=== PATIENT | male | born 1950 | race Caucasian/White ===

== ENCOUNTER 2022-06-29 12:50 | Emergency (ER) | payer OTHER, SELFPAY ==
[2022-06-29] VITALS (16 sets, daily range): BP systolic 152–172; BP diastolic 73–90; PULSE 63–73; RESP 16; TEMP 36.4; O2SAT 95–98; BMI 30.7
[2022-06-29 13:51] LABS: Basophils Absolute Auto 0.03 K/uL (0.00-0.30); Basophils Percent Auto 0.4 % (0.0-3.0); Eosinophils Absolute Auto 0.14 K/uL (0.00-0.50); Eosinophils Percent Auto 1.8 % (0.0-7.0); Hematocrit 41.7 % (37.0-53.0); Hemoglobin* 14.7 gm/dL (13.5-17.5); Immature Granulocytes Abs Auto 0.07 K/uL (0.00-0.30); Immature Granulocytes Pct Auto 0.9 %; Lymphocytes Absolute Auto 2.12 K/uL (0.90-2.90); Lymphocytes Percent Auto 27.5 % (20-44); Mean Corpuscular HGB Conc 35 gm/dL (32-36); Mean Corpuscular Hemoglobin 33 pg (26-34); Mean Corpuscular Volume 93 fL (80-100); Monocytes Percent Auto 15.7 % (0.0-11.0); Neutrophils Absolute Auto 4.15 K/uL (1.7-7.0); Neutrophils Percent Auto 53.7 % (42.0-72.0); Platelet Count* 179 K/uL (140-440); RDW Coefficient of Variation % 12.6 % (11.5-15.5); Red Blood Count 4.51 m/uL (4.30-5.90); White Blood Count* 7.72 K/uL (4.50-11.00)
[2022-06-29 13:52] LABS: Slide Review Reflex No
[2022-06-29 13:57] LABS: Troponin, Point-of-Care* 0.02 ng/ml (0.01-0.04)
[2022-06-29 14:04] LABS: Chloride* 108 mmol/L (96-114); Potassium* 3.6 mmol/L (3.6-5.1); Sodium* 142 mmol/L (135-149)
--- NOTE | 2022-06-29 14:06 | ED_ITS ---
HPI - Syncope General Date Seen: 06/29/22 Chief Complaint: Syncope/Fainted Stated Complaint: Passes out last night Time Seen by Provider: 06/29/22 12:51 Source: patient Mode of arrival: ambulatory Limitations: no limitations History of Present Illness HPI narrative: Patient is a pleasant 71-year-old gentleman who presents here for evaluation of a syncopal episode occurred yesterday, while he was in [place]. He was at a restaurant, had 1 glass of alcohol, then felt faint, and there is a period of approximately a couple minutes, where he almost passed out, they had to lay him down, with his legs elevated and then he felt much improved. His took his pulse at 1 point and could really get a radial pulse, although he seemingly was still breathing and somewhat talking, the whole time. Till he felt tired early back to normal was about an hour and a half, the paramedics came approximately 15 minutes after this occurred, did an EKG and blood pressure and told him that everything looked okay but they do recommend that he get seen. Denies any chest pain, or any feeling that his heart was racing, there is no headaches, denies any leg swelling, any exertional dyspnea either at the timer leading up to this, and otherwise feels fine with no fevers chills or cold-like symptoms. Did not take any other medication is on no chronic medications, no previous heart history nonsmoker with no really cardiovascular risks. Ate normally that day, drank normally, does not drink alcohol on a regular basis Related Data Home Medications Medication Instructions Recorded Confirmed No Known Home Medications 06/29/22 06/29/22 Allergies Allergy/AdvReac Type Severity Reaction Status Date / Time No Known Drug Allergies Allergy Verified 06/29/22 13:02 Review of Systems Status of ROS: Reports: 10 or more systems reviewed and unremarkable except as noted in History and below [facility] Social History Smoking Status: Never smoker Do you use any of these nicotine containing products: None Second hand tobacco smoke exposure: No How often do you have a drink containing alcohol: never AUDIT-C Alcohol total score: 0 Non-prescribed substance use: denies use Exam Narrative: Exam Narrative: Patient is speaking normally, no problem with slurring words, oriented x3. Head eyes ears nose and throat exam show equal pupils, no scleral icterus, extra ocular muscles are normal, no facial droop, speech is normal, trachea normal and midline. Thyroid normal midline palpable not enlarged. Chest shows symmetrical rise bilaterally, normal auscultation with no wheezes, no increased work of breathing, no overt bruising or lesions seen, no tenderness is noted on auscultation. Heart sounds normal with no S3-S4 no murmurs clicks or gallops. Abdomen shows no obvious masses or hepatosplenomegaly, no organomegaly, bowel sounds are normal in all quadrants. No tenderness is noted also in all quadrants. Upper and lower extremities show normal power, normal range of motion, pulses are normal, sensations normal, fine motor movements are normal, pelvis is stable to rocking. Cervical spine shows normal range of motion, and palpably not tender. Thoracic spine shows normal range of motion, and palpably not tender, lumbar spine shows no tenderness to palpation percussion and is otherwise normal range of motion. Skin shows no rashes, petechiae or eccymosis. Const: Vital Signs, click to edit/add: Vital Signs - 24 hr 06/29/22 12:55 06/29/22 14:26 Temperature 97.6 F Pulse Rate [Right Pulse Oximeter] 69 Pulse Rate [orthos tatic lying Left] 71 Pulse Rate [orthos tatic sitting] 73 Pulse Rate [orthos tatic standing] 72 Respiratory Rate 16 Blood Pressure [Le ft Upper Arm] 172/82 H Blood Pressure [or thostatic lying Le ft Arm] 161/73 H Blood Pressure [or thostatic sitting] 163/78 H Blood Pressure [or thostatic standing ] 162/90 H Pulse Oximetry 96 Oxygen Delivery Me thod Room Air Course Course Hospital Course: Reviewed with the patient his point of care ultrasound was normal, troponin was normal, D-dimer is normal hemoglobin, and basic metabolic profile were normal, triple screen for viral etiology was also negative. He has been normal sinus rhythm on the monitor, with a slightly elevated blood pressure systolic that I recommend that he follow-up with his primary. His glucose was also mildly elevated. Gave him a referral to an excellent a primary care and physician. I do think that is issues with his presyncope were likely due to a vasovagal episode but I could not rule out of more sinister cause for that reason I think follow-up is needed. He was in agreement with this. Vital Signs Vital signs: Initial Vital Signs Temperature 97.6 F 06/29/22 12:55 Temperature Source Temporal Artery Scan 06/29/22 12:55 Pulse Rate 69 06/29/22 12:55 Respiratory Rate 16 06/29/22 12:55 Blood Pressure 172/82 H 06/29/22 12:55 Blood Pressure Mean 112 06/29/22 12:55 Blood Pressure Position Supine 06/29/22 12:55 Pulse Oximetry 96 06/29/22 12:55 Oxygen Delivery Method 06/29/22 12:55 Vital Signs Temperature 97.6 F 06/29/22 12:55 Pulse Rate 69 06/29/22 12:55 Respiratory Rate 16 06/29/22 12:55 Blood Pressure 172/82 H 06/29/22 12:55 Pulse Oximetry 96 06/29/22 12:55 Oxygen Delivery Method 06/29/22 12:55 Temperature 97.6 F 06/29/22 12:55 Pulse Rate 71 06/29/22 14:26 Respiratory Rate 16 06/29/22 12:55 Blood Pressure 161/73 H 06/29/22 14:26 Pulse Oximetry 96 06/29/22 12:55 Oxygen Delivery Method 06/29/22 12:55 MDM - Syncope MDM Narrative Medical decision making narrative: Life-threatening differential diagnosis considered include: Cardiac arrhythmia, acute blood loss, and intracranial bleed. Other differential diagnosis include but are not limited to vasovagal syncope, orthostatic syncope, seizure, as well as other etiologies Medical Records Attestation: I reviewed the patient's medical records. Lab Data Attestation: I reviewed the patient's lab results. Labs: Lab Results 06/29/22 06/29/22 06/29/22 Range/Units 13:40 13:40 13:40 WBC 7.72 (4.50-11.00) K/uL RBC 4.51 (4.30-5.90) m/uL Hgb 14.7 (13.5-17.5) gm/dL Hct 41.7 (37.0-53.0) % MCV 93 (80-100) fL MCH 33 (26-34) pg MCHC 35 (32-36) gm/dL RDW Coeff of Claudia 12.6 (11.5-15.5) % Plt Count 179 (140-440) K/uL Neut % (Auto) 53.7 (42.0-72.0) % Lymph % (Auto) 27.5 (20-44) % Tate % (Auto) 15.7 H (0.0-11.0) % Eos % (Auto) 1.8 (0.0-7.0) % Baso % (Auto) 0.4 (0.0-3.0) % Neut # (Auto) 4.15 (1.7-7.0) K/uL Lymph # (Auto) 2.12 (0.90-2.90) K/uL Tate # (Auto) 1.20 H (0.00-0.90) K/UL Eos # (Auto) 0.14 (0.00-0.50) K/uL Baso # (Auto) 0.03 (0.00-0.30) K/uL INR 0.99 (0.91-1.10) APTT 27 (23-33) Seconds D-Dimer Quant (PE/DVT) 0.33 (0.00-0.50) ug/ml Sodium 142 (135-149) mmol/L Potassium 3.6 (3.6-5.1) mmol/L Chloride 108 (96-114) mmol/L Carbon Dioxide 25 (20-32) mmol/L BUN 23 (7-30) mg/dL Creatinine 1.2 (0.5-1.5) mg/dL Estimated Creat Clear 60.14 Estimated GFR 65 ml/min Glucose 120 H (60-115) mg/dL Calcium 9.0 (8.4-10.6) mg/dL NT-Pro-B Natriuret Pep < 20 pg/mL SARS-CoV-2 (PCR) (Negative) Influenza Type A (PCR) (Negative) Influenza Type B (PCR) (Negative) RSV (PCR) (Negative) POC Troponin I (0.01-0.04) ng/ml 06/29/22 06/29/22 Range/Units 13:40 13:40 WBC (4.50-11.00) K/uL RBC (4.30-5.90) m/uL Hgb (13.5-17.5) gm/dL Hct (37.0-53.0) % MCV (80-100) fL MCH (26-34) pg MCHC (32-36) gm/dL RDW Coeff of Claudia (11.5-15.5) % Plt Count (140-440) K/uL Neut % (Auto) (42.0-72.0) % Lymph % (Auto) (20-44) % Tate % (Auto) (0.0-11.0) % Eos % (Auto) (0.0-7.0) % Baso % (Auto) (0.0-3.0) % Neut # (Auto) (1.7-7.0) K/uL Lymph # (Auto) (0.90-2.90) K/uL Tate # (Auto) (0.00-0.90) K/UL Eos # (Auto) (0.00-0.50) K/uL Baso # (Auto) (0.00-0.30) K/uL INR (0.91-1.10) APTT (23-33) Seconds D-Dimer Quant (PE/DVT) (0.00-0.50) ug/ml Sodium (135-149) mmol/L Potassium (3.6-5.1) mmol/L Chloride (96-114) mmol/L Carbon Dioxide (20-32) mmol/L BUN (7-30) mg/dL Creatinine (0.5-1.5) mg/dL Estimated Creat Clear Estimated GFR ml/min Glucose (60-115) mg/dL Calcium (8.4-10.6) mg/dL NT-Pro-B Natriuret Pep pg/mL SARS-CoV-2 (PCR) Negative SARS-CoV-2 (Negative) Influenza Type A (PCR) Negative PCR FLU A (Negative) Influenza Type B (PCR) Negative PCR FLU B (Negative) RSV (PCR) Negative PCR RSV (Negative) POC Troponin I 0.02 (0.01-0.04) ng/ml ECG Data Attestation: I personally reviewed and interpreted this ECG as follows: ECG interpretation date: 06/29/22 Interpretation: EKG shows normal sinus rhythm, there is some nonspecific T-wave flattening noted throughout the precordium. QRS QT and GA interval within normal Discharge Plan Discharge Clinical Impression: Vasovagal syncope Patient Disposition: Home w/ Parent or Adult Condition: Stable Instructions: Syncope (ED), Near Syncope (ED), Syncope in Older Adults (ED) Additional Instructions: Home rest, I do recommend following up with primary care as her blood pressure was slightly elevated here. This may be due to the fact that the stressful nature of the ER, or the fact that you actually do have elevated blood pressure. Would recommend bringing primary care into the equation to discuss the syncope, often times then they will order a stress echo, but we will leave it up to them. The test for blood clot, along with heart, kidney, hemoglobin tests were all no rmal. That is very reassuring. Your glucose however was borderline high. And again should be followed up with primary care. Prescriptions: No Action No Known Home Medications Follow Up/Referrals: Joni Zimmerman MD [Staff Physician] - Provider,Not a Local [Primary Care Provider] - Stand Alone Forms: [facility] Info Instructions Procedures Ultrasound Cardiac exam #1: Anatomical areas examined: subxiphoid, parasternal long, parasternal short and apical 4 chamber Indications: other (Syncope) Exam type: limited transthoracic echocardiogram Impression: negative exam
[2022-06-29 14:07] LABS: Blood Urea Nitrogen* 23 mg/dL (7-30); Carbon Dioxide* 25 mmol/L (20-32); Creatinine* 1.2 mg/dL (0.5-1.5); Est. Creatinine Clearance* 60.14; Estimated Glomerular Filt Rate 65 ml/min
[2022-06-29 14:08] LABS: Glucose* 120 mg/dL (60-115)
[2022-06-29 14:09] LABS: Partial Thromboplastin Time* 27 Seconds (23-33)
[2022-06-29 14:10] LABS: INR 0.99 (0.91-1.10); Prothrombin Time 13.7 Seconds
[2022-06-29 14:12] LABS: D Dimer Quantitative* 0.33 ug/ml (0.00-0.50)
[2022-06-29 14:20] LABS: NT Pro B Type NatriureticPept* < 20 pg/mL
[2022-06-29 14:27] LABS: PCR FLU A Negative PCR FLU A (Negative); PCR FLU B Negative PCR FLU B (Negative); PCR RSV Negative PCR RSV (Negative)
[2022-06-29 14:48] LABS: SARS PCR* Negative SARS-CoV-2 (Negative)
== END 2022-06-29 15:42 | disposition home or self-care (01) ==
PROVIDERS: Emergency Provider Family Medicine
DX: R55 Syncope and collapse (principal)
CPT/HCPCS: 36415; 80048; 83880; 84484; 85025; 85379; 85610; 85730; 87502; 87634; 87635; 93005; 93308; 99284; 99285